=== PATIENT | female | born 1985 | race Caucasian/White ===

== ENCOUNTER 2019-09-12 10:14 | Emergency (ER) | payer OTHER, MEDICAID, SELFPAY ==
[2019-09-12 10:24] VITALS: BP 122/75; PULSE 80; RESP 16; TEMP 36.9; O2SAT 100
[2019-09-12 10:30] VITALS: BP 116/75; PULSE 80; RESP 16; TEMP 36.9; O2SAT 100
[2019-09-12 10:50] LABS: Add Manual Diff / Slide Review NO; Basophils Absolute Auto 0 /uL (0-100); Basophils Percent Auto 0.6 % (0-2); Eosinophils Absolute Auto 100 /uL (0-450); Hematocrit 38.2 % (36-46); Hemoglobin 13.1 g/dL (12.0-16.0); Lymphocytes Absolute Auto 1700 /uL (1100-4500); Lymphocytes Percent Auto 21.8 % (25-40); Mean Corpuscular HGB Conc 34.2 % (30-36); Mean Corpuscular Hemoglobin 30.6 PG (26-34); Mean Corpuscular Volume 89.5 fL (80-100); Monocytes Absolute Auto 400 /uL (0-900); Monocytes Percent Auto 5.3 % (3-14); Neutrophils Absolute Auto 5700 /uL (1500-7000); Neutrophils Percent Auto 71.3 % (50-75); Platelet Count 304 X10^3/uL (150-400); Red Blood Cell Count 4.27 X10^6/uL (4.0-5.2); White Blood Cell Count 7.9 X10^3/uL (4.5-11.0)
[2019-09-12 10:54] LABS: Prothrombin Time 11.8 SECONDS (10.1-12.7)
[2019-09-12 10:57] LABS: PTT Partial Thromboplastin Tim 33 SECONDS (26.4-36.2)
[2019-09-12 10:59] LABS: Alanine Aminotransferase 18 IU/L (<35); Albumin Globulin Ratio 1.5 (1.0-2.8); Alkaline Phosphatase 63 U/L (38-126); Aspartate Aminotransferase 27 IU/L (14-36); BUN Creatinine Ratio 13.3 (6-22); Bilirubin Total 0.3 mg/dL (0.2-1.3); Blood Urea Nitrogen 8 mg/dL (7-17); Calcium 9.2 mg/dL (8.4-10.2); Carbon Dioxide 25 mmol/L (22-32); Chloride 106 mmol/L (98-107); Creatine Kinase 205 U/L (30-135); Estimated Glomerular Filt Rate > 60.0 mL/min (>60); Globulin 2.7 g/dL (1.7-4.1); Glucose 100 mg/dL (70-100); HEMOLYSIS < 15 (0-50); Potassium 3.5 mmol/L (3.4-5.1); Sodium 139 mmol/L (137-145); Total Protein 6.7 g/dL (6.3-8.2)
--- NOTE | 2019-09-12 11:00 | ED_ITS ---
HPI - Chest Pain General Chief Complaint: Chest Pain Stated Complaint: chest pain Time Seen by Provider: 09/12/19 10:28 Source: patient Mode of arrival: Ambulatory Limitations: no limitations History of Present Illness HPI narrative: Patient is a 34-year-old homeless female presenting with right- sided chest pain. She says it started tenderness prior to her arrival here radiating through to her back she denies any shortness of breath palpitations nausea vomiting or abdominal pain. This is never happened to her before. She is now lying comfortably on the gurney. She says that her chest pain has overall improved. MD complaint: chest pain Onset (ago): minute(s) Duration: constant Onset: during rest Pain location: right chest Quality: aching Pain radiation: none Relieving factors: nothing Related Data Home Medications Medication Instructions Recorded Confirmed No Known Home Medications 09/12/19 09/12/19 Allergies Allergy/AdvReac Type Severity Reaction Status Date / Time INGREDIENT: NDA - NO KNOWN Allergy Unknown Uncoded 11/17/17 12:03 DRUG ALLERGIES Review of Systems Review of Systems ROS Unobtainable: All systems reviewed & are unremarkable except as noted in HPI and below Constitutional Constitutional: Denies chills, Denies fever(s), Denies lethargy and Denies weakness Eyes Eyes: Denies change in vision, Denies eye discharge, Denies irritation and Denies loss of vision ENT Ears, Nose, Mouth, and Throat: Denies change in voice, Denies neck pain and Denies sore throat Cardiovascular Cardiovascular: Reports as per HPI, Reports chest pain, Denies irregular heart rhythm, Denies lightheadedness, Denies palpitations, Denies dyspnea, Denies dyspnea on exertion and Denies orthopnea Respiratory Respiratory: Denies cough, Denies dyspnea, Denies dyspnea on exertion and Denies wheezing Gastrointestinal Gastrointestinal: Denies abdominal pain, Denies change in bowel habits, Denies diarrhea, Denies nausea and Denies vomiting Genitourinary Genitourinary: Denies hematuria, Denies flank pain, Denies urinary incontinence and Denies urinary urgency Musculoskeletal Musculoskeletal: Denies neck pain Integumentary/Breasts Skin/Breast: Denies pruritus, Denies erythema, Denies rash and Denies wounds Neurologic Neurologic: Denies loss of vision and Denies weakness Endocrine Endocrine: Denies palpitations Allergic/Immunologic Allergic/Immunologic: Denies wheezing Patient History Medical History Patient denies medical problems (Acute) Social History Smoking Status: Current every day smoker Smoking Status: Current every day smoker Substance Use Type: does not use Exam Initial Vital Signs Initial Vital Signs: Vital Signs Temperature 98.4 F 09/12/19 10:24 Pulse Rate 80 09/12/19 10:24 Respiratory Rate 16 09/12/19 10:24 Blood Pressure 122/75 09/12/19 10:24 Pulse Oximetry 100 09/12/19 10:24 GENERAL: Well-appearing, well-nourished and in no acute distress. HEENT: Head atraumatic,EOMI, pupils reactive, face symmetric, moist mucous membrane CARDIOVASCULAR: Regular rate and rhythm without murmurs, rubs or gallops. RESPIRATORY: Breath sounds equal bilaterally, no wheezes rales or rhonchi. ABDOMEN: Soft, nontender. Normoactive bowel sounds all 4 quadrants. No guarding or rebound. EXTREMITIES: Normal range of motion, no clubbing or edema. Neurovascularly intact NEUROLOGICAL: Alert and oriented x4.Normal gait and speech. Cranial nerves II through XII grossly intact. SKIN: Warm, dry, no laceration, no petechiae, no rashes or lesions. Scores HEART Score Heart Score history: Slightly Suspicious Heart Score EKG: Normal Heart Score Age: < 45 years old Heart Score risk factors: No known risk factors Heart Score troponin: < or = to normal limit Heart Score Total: 0 PERC Score Age greater than or equal to 50 years: No Heart rate greater than or equal to 100 bpm: No Room Air O2 Sat less than 95%: No Unilateral leg swelling: No Recent trauma or surgery: No Hemoptysis: No Prior PE or DVT: No Hormone Use: No Total PERC Score: 0 Course Orders Ordered: ED Orders 09/12/19 10:40 Consult to [employer] - [employer] Dra[employer] Stat 09/12/19 10:42 Complete Blood Count AUTO DIFF Stat Comprehensive Metabolic Panel Stat Partial Thromboplastin Time Stat Prothrombin Time INR Stat Troponin & CK Cardiac Panel Stat 09/12/19 12:33 Troponin I Stat Vital Signs Vital signs: Vital Signs - 8 hr 09/12/19 10:24 09/12/19 10:30 09/12/19 11:33 Temperature 98.4 F 98.4 F Pulse Rate 80 80 59 L Respiratory Rate 16 16 17 Blood Pressure 116/75 Blood Pressure [Left Arm] 122/75 113/67 Pulse Oximetry 100 100 100 09/12/19 12:38 09/12/19 13:23 Temperature Pulse Rate 70 78 Respiratory Rate 18 16 Blood Pressure Blood Pressure [Left Arm] 118/64 122/68 Pulse Oximetry 100 99 MDM - Chest Pain Lab Data Attestation: I reviewed the patient's lab results. Result diagrams: 09/12/19 10:42 09/12/19 10:42 Labs: Lab Results 09/12/19 09/12/19 09/12/19 Range/Units 10:42 10:42 10:42 WBC 7.9 (4.5-11.0) X10^3/uL RBC 4.27 (4.0-5.2) X10^6/uL Hgb 13.1 (12.0-16.0) g/dL Hct 38.2 (36-46) % MCV 89.5 (80-100) fL MCH 30.6 (26-34) PG MCHC 34.2 (30-36) % RDW 13.0 (11.6-14.8) % Plt Count 304 (150-400) X10^3/uL Neut % (Auto) 71.3 (50-75) % Lymph % (Auto) 21.8 L (25-40) % Stewart % (Auto) 5.3 (3-14) % Eos % (Auto) 1.0 L (2-4) % Baso % (Auto) 0.6 (0-2) % Neut # (Auto) 5700 (9466-0056) /uL Lymph # (Auto) 1700 (7455-5416) /uL Stewart # (Auto) 400 (0-900) /uL Eos # (Auto) 100 (0-450) /uL Baso # (Auto) 0 (0-100) /uL PT 11.8 (10.1-12.7) SECONDS INR 1.0 (0.9-1.3) APTT 33 (26.4-36.2) SECONDS Sodium 139 (137-145) mmol/L Potassium 3.5 (3.4-5.1) mmol/L Chloride 106 (98-107) mmol/L Carbon Dioxide 25 (22-32) mmol/L BUN 8 (7-17) mg/dL Creatinine 0.60 (0.52-1.04) mg/dL Estimated GFR > 60.0 (>60) mL/min BUN/Creatinine Ratio 13.3 (6-22) Glucose 100 (70-100) mg/dL Calcium 9.2 (8.4-10.2) mg/dL Total Bilirubin 0.3 (0.2-1.3) mg/dL AST 27 (14-36) IU/L ALT 18 (<35) IU/L Alkaline Phosphatase 63 (38-126) U/L Total Creatine Kinase 205 H (30-135) U/L CK-MB (CK-2) 1.42 (<2.37) ng/mL CK-MB (CK-2) Rel Index 0.7 L (1.5-5.0) % Troponin I < 0.012 (0.01-0.034) ng/mL Total Protein 6.7 (6.3-8.2) g/dL Albumin 4.0 (3.5-5.0) g/dL Globulin 2.7 (1.7-4.1) g/dL Albumin/Globulin Ratio 1.5 (1.0-2.8) 09/12/19 Range/Units 12:33 WBC (4.5-11.0) X10^3/uL RBC (4.0-5.2) X10^6/uL Hgb (12.0-16.0) g/dL Hct (36-46) % MCV (80-100) fL MCH (26-34) PG MCHC (30-36) % RDW (11.6-14.8) % Plt Count (150-400) X10^3/uL Neut % (Auto) (50-75) % Lymph % (Auto) (25-40) % Stewart % (Auto) (3-14) % Eos % (Auto) (2-4) % Baso % (Auto) (0-2) % Neut # (Auto) (8455-1845) /uL Lymph # (Auto) (0952-2356) /uL Stewart # (Auto) (0-900) /uL Eos # (Auto) (0-450) /uL Baso # (Auto) (0-100) /uL PT (10.1-12.7) SECONDS INR (0.9-1.3) APTT (26.4-36.2) SECONDS Sodium (137-145) mmol/L Potassium (3.4-5.1) mmol/L Chloride (98-107) mmol/L Carbon Dioxide (22-32) mmol/L BUN (7-17) mg/dL Creatinine (0.52-1.04) mg/dL Estimated GFR (>60) mL/min BUN/Creatinine Ratio (6-22) Glucose (70-100) mg/dL Calcium (8.4-10.2) mg/dL Total Bilirubin (0.2-1.3) mg/dL AST (14-36) IU/L ALT (<35) IU/L Alkaline Phosphatase (38-126) U/L Total Creatine Kinase (30-135) U/L CK-MB (CK-2) (<2.37) ng/mL CK-MB (CK-2) Rel Index (1.5-5.0) % Troponin I < 0.012 (0.01-0.034) ng/mL Total Protein (6.3-8.2) g/dL Albumin (3.5-5.0) g/dL Globulin (1.7-4.1) g/dL Albumin/Globulin Ratio (1.0-2.8) ECG Data Attestation: I personally reviewed and interpreted this ECG as follows: Prior ECG tracings: not available for review Interpretation: Normal sinus rhythm rate 79 p.r. interval 152 QRS [address] elevation depression or T-wave inversion no priors to compare MDM Narrative Medical decision making narrative: Patient's pain is unlikely to be cardiac negative troponins low risk heart score. Social work has been down to evaluate patient in his given her resources. Discharge Plan Departure Patient Disposition: Home Clinical Impression: Atypical chest pain Discharge Date/Time: 09/12/19 13:36 Instructions: DI for Atypical Chest Pain Activity Restrictions/Additional Instructions: *You have been diagnosed with atypical chest pain *What to do: At this time pain is unlikely to be heart related more likely to be musculoskeletal *Continue to take medications as directed Tylenol 650 mg every 4-6 hours if needed for pain Ibuprofen 800 mg every 8 hours for pain *Follow up with your primary care provider in 2-3 days *Return to ER if you should have increasing pain or shortness for or any new, worsening or concerning symptoms Prescriptions: No Action No Known Home Medications RF: 0 Referrals: [facility] [Outside]
[2019-09-12 11:11] LABS: Troponin I < 0.012 ng/mL (0.01-0.034)
[2019-09-12 11:15] LABS: CKMB % Relative Index 0.7 % (1.5-5.0); Creatine Kinase MB 1.42 ng/mL (<2.37)
[2019-09-12 11:33] VITALS: BP 113/67; PULSE 59; RESP 17; O2SAT 100
[2019-09-12 12:38] VITALS: BP 118/64; PULSE 70; RESP 18; O2SAT 100
[2019-09-12 13:04] LABS: Troponin I < 0.012 ng/mL (0.01-0.034)
--- NOTE | 2019-09-12 13:12 | PC.NURSE ---
pt states she doesn't normally smoke cigarettes but did yesterday because she was feeling stressed.
[2019-09-12 13:23] VITALS: BP 122/68; PULSE 78; RESP 16; O2SAT 99
--- NOTE | 2019-09-12 16:12 | CM.SWNOTE ---
PRESS [employer] Note: Received referral from Emergency Department to see this 34yr old female that came in to Emergency Department with chest pain. No PCP listed. Primary payor is [employer]. Met with patient explained [employer] role. Patient reports that she is currently homeless patient very vague about the details about her homelessness and does not have any plan for housing in the future? Patient denies suicidal ideation and reports that she does have depression but no current thoughts of harming herself. Patient denies using alcohol or illegal drugs. Patient agreeable to [facility] and [facility] brochure for . Provided patient with both. Patient does have friend and boyfriend in town but she is unable to stay with them. However, she can see them. Patient denies any further needs. P: D/C from [facility] ED with community resources for homelessness and mental health. TORSTEN Haley
== END 2019-09-12 13:36 | disposition home or self-care (01) ==
PROVIDERS: Emergency Provider Emergency Medicine
DX: R07.89 Other chest pain (principal)
CPT/HCPCS: 36415; 80053; 82550; 82553; 84484; 85025; 85610; 85730; 93005; 99283; 99284

== ENCOUNTER 2019-09-13 11:22 | Emergency (ER) | payer OTHER, MEDICAID, SELFPAY ==
[2019-09-13 11:42] VITALS: BP 132/84; PULSE 90; RESP 16; TEMP 35.9; O2SAT 98
[2019-09-13 14:24] LABS: Add Manual Diff / Slide Review NO; Basophils Absolute Auto 0 /uL (0-100); Basophils Percent Auto 0.7 % (0-2); Eosinophils Absolute Auto 100 /uL (0-450); Eosinophils Percent Auto 1.6 % (2-4); Hematocrit 38.4 % (36-46); Hemoglobin 13.2 g/dL (12.0-16.0); Lymphocytes Absolute Auto 1400 /uL (1100-4500); Mean Corpuscular HGB Conc 34.3 % (30-36); Mean Corpuscular Hemoglobin 30.8 PG (26-34); Mean Corpuscular Volume 89.9 fL (80-100); Monocytes Absolute Auto 300 /uL (0-900); Monocytes Percent Auto 5.1 % (3-14); Neutrophils Absolute Auto 4700 /uL (1500-7000); Neutrophils Percent Auto 71.6 % (50-75); Platelet Count 309 X10^3/uL (150-400); Red Blood Cell Count 4.27 X10^6/uL (4.0-5.2); Red Cell Distribution Width 12.9 % (11.6-14.8); White Blood Cell Count 6.6 X10^3/uL (4.5-11.0)
[2019-09-13 14:37] LABS: Alanine Aminotransferase 17 IU/L (<35); Albumin 3.9 g/dL (3.5-5.0); Albumin Globulin Ratio 1.5 (1.0-2.8); Alkaline Phosphatase 46 U/L (38-126); Aspartate Aminotransferase 24 IU/L (14-36); BUN Creatinine Ratio 18.3 (6-22); Bilirubin Total 0.2 mg/dL (0.2-1.3); Blood Urea Nitrogen 11 mg/dL (7-17); Calcium 9.1 mg/dL (8.4-10.2); Carbon Dioxide 26 mmol/L (22-32); Chloride 106 mmol/L (98-107); Estimated Glomerular Filt Rate > 60.0 mL/min (>60); Ethanol (ETOH) < 10 mg/dL; Globulin 2.6 g/dL (1.7-4.1); Glucose 106 mg/dL (70-100); HEMOLYSIS < 15 (0-50); Potassium 3.8 mmol/L (3.4-5.1); Sodium 140 mmol/L (137-145); Total Protein 6.5 g/dL (6.3-8.2)
[2019-09-13 14:51] VITALS: BP 112/71; PULSE 71; RESP 18; O2SAT 100
[2019-09-13 15:12] LABS: Thyroid Stimulating Hormone 0.82 uIU/mL (0.47-4.68)
--- NOTE | 2019-09-13 15:52 | PC.NURSE ---
pt is laying on [address]. Door is open and lights are off
--- NOTE | 2019-09-13 16:25 | PC.NURSE ---
pt is sleeping. easy arousable.
[2019-09-13 17:30] VITALS: BP 127/68; PULSE 80; RESP 16; O2SAT 99
[2019-09-13 17:43] LABS: Ur Creatinine Normal (Normal); Ur Specific Gravity Normal (Normal); Urine pH Normal (Normal)
[2019-09-13 17:44] LABS: UR Morphine/Opiate cutoff 300 Negative (Negative); Urine Amphetamines Negative (Negative); Urine Barbiturates Negative (Negative); Urine Benzodiazepines Negative (Negative); Urine Cocaine Negative (Negative); Urine MDMA Negative (Negative); Urine Methadone Negative (Negative); Urine Methamphetamines Negative (Negative); Urine Oxycodone Negative (Negative); Urine Phencyclidine Negative (Negative); Urine Tetrahydrocannabinol Positive (Negative); Urine Tricyclic Antidepressant Negative (Negative)
--- NOTE | 2019-09-13 18:56 | ED.PSYCH ---
HPI - Psych <Fred HernandezCELESTINA garcia - Last Filed: 09/13/19 21:32> General Chief Complaint: Psychiatric Symptoms Stated Complaint: Feeling suicidal Time Seen by Provider: 09/13/19 12:46 Source: patient Mode of arrival: Ambulatory Limitations: no limitations History of Present Illness HPI Narrative: This is a 34-year-old female, nonsmoker, who presents to ED with suicidal ideation. Patient reports she has been having suicidal ideation for last several weeks and she had tried to kill myself 3 weeks ago by inhaler with propane inhalation from a [employer] grill. Patient states this was unsuccessful and nothing happened. Today's she has been having suicidal ideation by jumping off the bridge or stepping into a moving car. Patient denies previous suicidal attempts be size mentioned as above. Reports history of depression, anxiety, bipolar and used to take Latuda, [place], Prozac, trazodone but stopped all medications about 2 months ago since Latuda was making her feel worse with increasing anxiety and irritability. Patient states she is originally from [place] but she is here in [employer] to stay with her friend. Patient denies any recent illness. Patient reports she has been feeling sad and has no interest in things. Reports history of suicide of younger brother who hung himself 5 years ago and sister who also 3 years ago with unsure of cause. Patient states she is looking for a inpatient facility for her suicidal ideation and depression. Patient states does not have counselor at this time. Related Data Home Medications Medication Instructions Recorded Confirmed No Known Home Medications 09/12/19 09/13/19 Allergies Allergy/AdvReac Type Severity Reaction Status Date / Time INGREDIENT: NDA - NO KNOWN Allergy Unknown Uncoded 11/17/17 12:03 DRUG ALLERGIES Review of Systems <Fred MaxwellCELESTINA - Last Filed: 09/13/19 21:32> Review of Systems Narrative: General: Denies fever, chills, fatigue, malaise, sweats. HEENT: Denies sinus pain, ear pain, sore throat, difficulty swallowing, dizziness. Respiratory: Denies dyspnea, cough, wheezing, hemoptysis, sputum. Cardiovascular: Denies chest pain, palpitations, orthopnea, edema. Gastrointestinal: Denies nausea, vomiting, abdominal pain, diarrhea, constipation, melena. : Denies dysuria, frequency, incontinence, hematuria, urinary retention. Musculoskeletal: Denies weakness, joint pain or bony pain. Skin: Denies rash, skin lesions, or other. Neurologic: Denies weakness, headache, numbness, change in speech, confusion, seizures, incoordination. Psychiatric: HPI 12-point review of systems is negative except for those stated above. Patient History <CELESTINA Bae - Last Filed: 09/13/19 21:32> Medical History (Updated 09/13/19 @ 21:32 by CELESTINA Bae) Anxiety (Acute) Bipolar affect, depressed (Acute) Depression (Acute) Other urethral stricture, female (Acute) Patient denies medical problems (Acute) Social History Smoking Status: Never smoker Smoking Status: Never smoker Substance Use Type: does not use Exam <CELESTINA Bae - Last Filed: 09/13/19 21:32> Narrative Exam Narrative: General appearance: well developed, well nourished, in no acute distress. Head: normocephalic, atraumatic, no scalp lesions, non-tender. ENT: Bilateral auditory canals and tympanic membranes clear. Hearing grossly intact. Nose without bleeding, purulent discharge, septal hematoma or deviation. Turbinate without erythema or swelling. Facial sinuses nontender to palpate. Mucous membrane moist, no mucosal lesion. Throat without erythema, tonsillar hypertrophy or exudate. Uvula in midline, airway patent. Neck/Thyroid: neck supple, full range of motion, no visible masses or meningeal signs. No JVD, non-tender without lymphadenopathy. Skin: no suspicious rashes, lesions over visible areas. Warm and dry and appropriate color for ethnicity. Heart: no clubbing, no cyanosis, no edema. Lungs: Breathing even and unlabored. No stridor. No accessory muscles used. Able to speak in full sentences. Chest: normal shape and expansion. Abdomen: non-obese, non-distended. Neurologic: alert and oriented. Cognitive exam, LIFT MECH[employer]IC and PNS grossly intact on informal exam. Psych: good eye contact, normal affect. Initial Vital Signs Initial Vital Signs: Vital Signs Temperature 96.7 F L 09/13/19 11:42 Pulse Rate 90 09/13/19 11:42 Respiratory Rate 16 09/13/19 11:42 Blood Pressure 132/84 09/13/19 11:42 Pulse Oximetry 98 09/13/19 11:42 Psych Appearance: grossly normal Mental Status: mental status grossly normal Speech and Movement: speech and movement normal and speech clear Mood: congruent mood Affect: normal affect Attitude: cooperative Thought Process: normal Thought Content: normal Judgment: fair <Stephanie Brewster DO - Last Filed: 09/14/19 14:37> Initial Vital Signs Initial Vital Signs: Vital Signs Temperature 96.7 F L 09/13/19 11:42 Pulse Rate 90 09/13/19 11:42 Respiratory Rate 16 09/13/19 11:42 Blood Pressure 132/84 09/13/19 11:42 Pulse Oximetry 98 09/13/19 11:42 Scores <CELESTINA Bae - Last Filed: 09/13/19 21:32> GCS Fredy coma scale eye opening: Spontaneous [place] coma scale verbal response: Orientated [place] coma scale motor response: Obey commands [place] coma scale total score: 15 Course <CELESTINA Bae - Last Filed: 09/13/19 21:32> Orders Ordered: ED Orders 09/13/19 13:30 Consult to [facility] - High Density Press Operator Stat 09/13/19 14:17 Complete Blood Count AUTO DIFF Stat Comprehensive Metabolic Panel Stat Ethanol (ETOH) Stat Thyroid Stimulating Hormone Stat 09/13/19 17:06 Urine Drug Screen, Rapid Stat Reevaluation(s) Reevaluation #1: The patient continues to request inpatient facility for suicidal ideation with jumping off the breech and walking towards incoming traffic when reassessed. She is medically cleared for voluntary inpatient facility placement. Time: 17:40 Vital Signs Vital signs: Vital Signs - 8 hr 09/13/19 14:51 09/13/19 17:30 09/13/19 21:00 Pulse Rate 71 80 90 Respiratory Rate 18 16 15 Blood Pressure [Left Arm] 112/71 127/68 125/67 Pulse Oximetry 100 99 97 <Stephanie Brewster DO - Last Filed: 09/14/19 14:37> Orders Ordered: ED Orders 09/13/19 13:30 Consult to [facility] - High Density Press Operator Stat 09/13/19 14:17 Complete Blood Count AUTO DIFF Stat Comprehensive Metabolic Panel Stat Ethanol (ETOH) Stat Thyroid Stimulating Hormone Stat 09/13/19 17:06 Urine Drug Screen, Rapid Stat Vital Signs Vital signs: Vital Signs - 8 hr 09/13/19 14:51 09/13/19 17:30 09/13/19 21:00 Pulse Rate 71 80 90 Respiratory Rate 18 16 15 Blood Pressure [Left Arm] 112/71 127/68 125/67 Pulse Oximetry 100 99 97 MDM - Psych <ZAFAR BaeP - Last Filed: 09/13/19 21:32> Differential Diagnosis Differential diagnosis: Likely suicidal ideation, bipolar disorder and depression Medical Records Attestation: I reviewed the patient's medical records. Lab Data Attestation: I reviewed the patient's lab results. Result diagrams: 09/13/19 14:17 09/13/19 14:17 Labs: Lab Results 09/13/19 09/13/19 09/13/19 Range/Units 14:17 14:17 14:17 WBC 6.6 (4.5-11.0) X10^3/uL RBC 4.27 (4.0-5.2) X10^6/uL Hgb 13.2 (12.0-16.0) g/dL Hct 38.4 (36-46) % MCV 89.9 (80-100) fL MCH 30.8 (26-34) PG MCHC 34.3 (30-36) % RDW 12.9 (11.6-14.8) % Plt Count 309 (150-400) X10^3/uL Neut % (Auto) 71.6 (50-75) % Lymph % (Auto) 21.0 L (25-40) % [place] % (Auto) 5.1 (3-14) % Eos % (Auto) 1.6 L (2-4) % Baso % (Auto) 0.7 (0-2) % Neut # (Auto) 4700 (6111-1213) /uL Lymph # (Auto) 1400 (0995-1900) /uL [place] # (Auto) 300 (0-900) /uL Eos # (Auto) 100 (0-450) /uL Baso # (Auto) 0 (0-100) /uL Sodium 140 (137-145) mmol/L Potassium 3.8 (3.4-5.1) mmol/L Chloride 106 (98-107) mmol/L Carbon Dioxide 26 (22-32) mmol/L BUN 11 (7-17) mg/dL Creatinine 0.60 (0.52-1.04) mg/dL Estimated GFR > 60.0 (>60) mL/min BUN/Creatinine Ratio 18.3 (6-22) Glucose 106 H (70-100) mg/dL Calcium 9.1 (8.4-10.2) mg/dL Total Bilirubin 0.2 (0.2-1.3) mg/dL AST 24 (14-36) IU/L ALT 17 (<35) IU/L Alkaline Phosphatase 46 (38-126) U/L Total Protein 6.5 (6.3-8.2) g/dL Albumin 3.9 (3.5-5.0) g/dL Globulin 2.6 (1.7-4.1) g/dL Albumin/Globulin Ratio 1.5 (1.0-2.8) TSH 0.82 (0.47-4.68) uIU/mL U Opiates 300ng/mL cut (Negative) Ur Oxycodone Screen (Negative) Urine Methadone Screen (Negative) Ur Barbiturates Screen (Negative) U Tricyclic Antidepress (Negative) Ur Phencyclidine Scrn (Negative) Ur Amphetamines Screen (Negative) U Methamphetamines Scrn (Negative) Ur MDMA Scrn (Ecstasy) (Negative) U Benzodiazepines Scrn (Negative) Urine Cocaine Screen (Negative) U Marijuana (THC) Screen (Negative) Ethyl Alcohol < 10 ( - 10) mg/dL 09/13/19 Range/Units 17:06 WBC (4.5-11.0) X10^3/uL RBC (4.0-5.2) X10^6/uL Hgb (12.0-16.0) g/dL Hct (36-46) % MCV (80-100) fL MCH (26-34) PG MCHC (30-36) % RDW (11.6-14.8) % Plt Count (150-400) X10^3/uL Neut % (Auto) (50-75) % Lymph % (Auto) (25-40) % [place] % (Auto) (3-14) % Eos % (Auto) (2-4) % Baso % (Auto) (0-2) % Neut # (Auto) (1373-2504) /uL Lymph # (Auto) (1959-4781) /uL [place] # (Auto) (0-900) /uL Eos # (Auto) (0-450) /uL Baso # (Auto) (0-100) /uL Sodium (137-145) mmol/L Potassium (3.4-5.1) mmol/L Chloride (98-107) mmol/L Carbon Dioxide (22-32) mmol/L BUN (7-17) mg/dL Creatinine (0.52-1.04) mg/dL Estimated GFR (>60) mL/min BUN/Creatinine Ratio (6-22) Glucose (70-100) mg/dL Calcium (8.4-10.2) mg/dL Total Bilirubin (0.2-1.3) mg/dL AST (14-36) IU/L ALT (<35) IU/L Alkaline Phosphatase (38-126) U/L Total Protein (6.3-8.2) g/dL Albumin (3.5-5.0) g/dL Globulin (1.7-4.1) g/dL Albumin/Globulin Ratio (1.0-2.8) TSH (0.47-4.68) uIU/mL U Opiates 300ng/mL cut Negative (Negative) Ur Oxycodone Screen Negative (Negative) Urine Methadone Screen Negative (Negative) Ur Barbiturates Screen Negative (Negative) U Tricyclic Antidepress Negative (Negative) Ur Phencyclidine Scrn Negative (Negative) Ur Amphetamines Screen Negative (Negative) U Methamphetamines Scrn Negative (Negative) Ur MDMA Scrn (Ecstasy) Negative (Negative) U Benzodiazepines Scrn Negative (Negative) Urine Cocaine Screen Negative (Negative) U Marijuana (THC) Screen Positive H (Negative) Ethyl Alcohol ( - 10) mg/dL Point of Care Testing Test Results Negative Urine Dip Bedside Urine Glucose Negative Bedside Urine Bilirubin - Negative Bedside Urine Ketone +/- 5 Urine Specific Tanner 1.025 Bedside Urine Occult Blood - Negative Bedside Urine pH 6.5 Bedside Urine Protein +/- 15 Bedside Urine Urobilinogen - Negative Bedside Urine Nitrite - Negative Bedside Urine Leukocytes - Negative Esterase MDM Narrative Medical decision making narrative: This is a 34-year-old female who presents to ED voluntarily with suicidal ideation and depression, she is requesting inpatient treatment and help. UDS showed positive for THC. Otherwise, unremarkable lab test and physical exam is benign. Patient denies homicidal thoughts. Patient is not currently on medication but use to take medication up until 2 months ago for bipolar with Latuda on her own. Patient is relatively new in town and does not have PCP, counselor set up. Patient's plan for suicidal thoughts are walking into a moving car or jumping off the bridge. Patient informed about outpatient treatment with the [facility] but she declined this option And requesting inpatient treatment. Patient was reassessed several hours after about her suicidal thoughts and intention and she continues to have suicidal ideation with same methods and is requesting inpatient facility treatment. All require document has been completed for transfer. <Stephanie Brewster, DO - Last Filed: 09/14/19 14:37> Lab Data Labs: Lab Results 09/13/19 09/13/19 09/13/19 Range/Units 14:17 14:17 14:17 WBC 6.6 (4.5-11.0) X10^3/uL RBC 4.27 (4.0-5.2) X10^6/uL Hgb 13.2 (12.0-16.0) g/dL Hct 38.4 (36-46) % MCV 89.9 (80-100) fL MCH 30.8 (26-34) PG MCHC 34.3 (30-36) % RDW 12.9 (11.6-14.8) % Plt Count 309 (150-400) X10^3/uL Neut % (Auto) 71.6 (50-75) % Lymph % (Auto) 21.0 L (25-40) % [place] % (Auto) 5.1 (3-14) % Eos % (Auto) 1.6 L (2-4) % Baso % (Auto) 0.7 (0-2) % Neut # (Auto) 4700 (9120-8717) /uL Lymph # (Auto) 1400 (0921-6837) /uL [place] # (Auto) 300 (0-900) /uL Eos # (Auto) 100 (0-450) /uL Baso # (Auto) 0 (0-100) /uL Sodium 140 (137-145) mmol/L Potassium 3.8 (3.4-5.1) mmol/L Chloride 106 (98-107) mmol/L Carbon Dioxide 26 (22-32) mmol/L BUN 11 (7-17) mg/dL Creatinine 0.60 (0.52-1.04) mg/dL Estimated GFR > 60.0 (>60) mL/min BUN/Creatinine Ratio 18.3 (6-22) Glucose 106 H (70-100) mg/dL Calcium 9.1 (8.4-10.2) mg/dL Total Bilirubin 0.2 (0.2-1.3) mg/dL AST 24 (14-36) IU/L ALT 17 (<35) IU/L Alkaline Phosphatase 46 (38-126) U/L Total Protein 6.5 (6.3-8.2) g/dL Albumin 3.9 (3.5-5.0) g/dL Globulin 2.6 (1.7-4.1) g/dL Albumin/Globulin Ratio 1.5 (1.0-2.8) TSH 0.82 (0.47-4.68) uIU/mL U Opiates 300ng/mL cut (Negative) Ur Oxycodone Screen (Negative) Urine Methadone Screen (Negative) Ur Barbiturates Screen (Negative) U Tricyclic Antidepress (Negative) Ur Phencyclidine Scrn (Negative) Ur Amphetamines Screen (Negative) U Methamphetamines Scrn (Negative) Ur MDMA Scrn (Ecstasy) (Negative) U Benzodiazepines Scrn (Negative) Urine Cocaine Screen (Negative) U Marijuana (THC) Screen (Negative) Ethyl Alcohol < 10 ( - 10) mg/dL 09/13/19 Range/Units 17:06 WBC (4.5-11.0) X10^3/uL RBC (4.0-5.2) X10^6/uL Hgb (12.0-16.0) g/dL Hct (36-46) % MCV (80-100) fL MCH (26-34) PG MCHC (30-36) % RDW (11.6-14.8) % Plt Count (150-400) X10^3/uL Neut % (Auto) (50-75) % Lymph % (Auto) (25-40) % [place] % (Auto) (3-14) % Eos % (Auto) (2-4) % Baso % (Auto) (0-2) % Neut # (Auto) (0332-9046) /uL Lymph # (Auto) (6168-2350) /uL [place] # (Auto) (0-900) /uL Eos # (Auto) (0-450) /uL Baso # (Auto) (0-100) /uL Sodium (137-145) mmol/L Potassium (3.4-5.1) mmol/L Chloride (98-107) mmol/L Carbon Dioxide (22-32) mmol/L BUN (7-17) mg/dL Creatinine (0.52-1.04) mg/dL Estimated GFR (>60) mL/min BUN/Creatinine Ratio (6-22) Glucose (70-100) mg/dL Calcium (8.4-10.2) mg/dL Total Bilirubin (0.2-1.3) mg/dL AST (14-36) IU/L ALT (<35) IU/L Alkaline Phosphatase (38-126) U/L Total Protein (6.3-8.2) g/dL Albumin (3.5-5.0) g/dL Globulin (1.7-4.1) g/dL Albumin/Globulin Ratio (1.0-2.8) TSH (0.47-4.68) uIU/mL U Opiates 300ng/mL cut Negative (Negative) Ur Oxycodone Screen Negative (Negative) Urine Methadone Screen Negative (Negative) Ur Barbiturates Screen Negative (Negative) U Tricyclic Antidepress Negative (Negative) Ur Phencyclidine Scrn Negative (Negative) Ur Amphetamines Screen Negative (Negative) U Methamphetamines Scrn Negative (Negative) Ur MDMA Scrn (Ecstasy) Negative (Negative) U Benzodiazepines Scrn Negative (Negative) Urine Cocaine Screen Negative (Negative) U Marijuana (THC) Screen Positive H (Negative) Ethyl Alcohol ( - 10) mg/dL Point of Care Testing Test Results Negative Urine Dip Bedside Urine Glucose Negative Bedside Urine Bilirubin - Negative Bedside Urine Ketone +/- 5 Urine Specific [place] 1.025 Bedside Urine Occult Blood - Negative Bedside Urine pH 6.5 Bedside Urine Protein +/- 15 Bedside Urine Urobilinogen - Negative Bedside Urine Nitrite - Negative Bedside Urine Leukocytes - Negative Esterase Discharge Plan Departure Patient Disposition: Xfer Psychiatric Hosp Clinical Impression: Suicidal ideation Depression Qualifiers: Depression Type: unspecified Qualified Code(s): F32.9 - Major depressive disorder, single episode, unspecified Bipolar affect, depressed Qualifiers: Current episode severity: unspecified Qualified Code(s): F31.30 - Bipolar disorder, current episode depressed, mild or moderate severity, unspecified Discharge Date/Time: 09/13/19 21:45
--- NOTE | 2019-09-13 19:46 | PC.NURSE ---
UPPER LINING CEMENTER Note: Patient sitting calmly in bed. Eating popcorn and apple sauce provided by RN.
--- NOTE | 2019-09-13 20:14 | PC.NURSE ---
HAND BUFFING WHEEL FORMER Note: Pt lying in bed quietly on side.
[2019-09-13 21:00] VITALS: BP 125/67; PULSE 90; RESP 15; O2SAT 97
== END 2019-09-13 21:45 ==
PROVIDERS: Emergency Provider Nurse Practitioner Family
DX: R45.851 Suicidal ideations (principal); F31.30 Bipolar disorder, current episode depressed, mild or moderate severity, unspecified
CPT/HCPCS: 36415; 80053; 80305; 80320; 81003; 81025; 84443; 85025; 99284